=== PATIENT | male | born 1980 | race Caucasian/White ===

== ENCOUNTER 2022-05-03 20:59 | Emergency (ER) | payer SELFPAY ==
[~2022-05-03] VITALS: Ht 170.2 cm; Wt 71.4 kg
[2022-05-03 21:14] VITALS: BP 139/80
[2022-05-03] MEDS ORDERED: ACETAMINOPHEN 325MG TABLET PO ONE (22:30)
[2022-05-04] MEDS ORDERED: ACET-2708 MT (00:01)
== END 2022-05-04 00:11 | disposition home or self-care (01) ==
LOC: ER 20:59
DX: S20.212A Contusion of left front wall of thorax, initial encounter (principal); R10.9 Unspecified abdominal pain; W22.8XXA Striking against or struck by other objects, initial encounter; Y93.01 Activity, walking, marching and hiking; Y92.89 Other specified places as the place of occurrence of the external cause; Y99.8 Other external cause status
CPT/HCPCS: 71101; 93005; 99283